=== PATIENT | female | born 1935 | race Caucasian/White ===

== ENCOUNTER 2017-08-22 12:21 | Emergency (ER) | payer MEDICARE, BC ==
[~2017-08-22] VITALS: Ht 152.4 cm; Wt 71.0 kg
[~2017-08-22 12:21] MED LIST: APIX5TAB3 PO; BIMA2.5D LEFTEYE; FLUO20CA39 PO; LOSA50TA37 PO; METF500T PO; NITR100C6 PO; THY15T PO
[2017-08-22 12:55] LABS: BASOPHILS % (AUTO) 0.2 % (0-1); EOSINOPHILS # (AUTO) 0.1 X10'3 (0-0.9); EOSINOPHILS % (AUTO) 1.7 % (0-6); HEMATOCRIT 42.2 % (35.0-45.0); HEMOGLOBIN 14.7 g/dl (12.0-16.0); LYMPHOCYTES # (AUTO) 1.7 X10'3 (1.1-4.8); LYMPHOCYTES % (AUTO) 24.8 % (21-51); MEAN CORPUSCULAR HEMOGLOBIN 30.9 PG (27.0-31.0); MEAN CORPUSCULAR HGB CONC 34.9 % (33.0-36.5); MEAN CORPUSCULAR VOLUME 88.8 FL (78-98); MEAN PLATELET VOLUME 9.1 FL (7.4-10.4); MONOCYTES # (AUTO) 0.5 X10'3 (0-0.9); MONOCYTES % (AUTO) 6.9 % (2-12); NEUTROPHILS # (AUTO) 4.4 X10'3 (1.8-7.7); NEUTROPHILS % (AUTO) 66.4 % (42-75); PLATELET COUNT 170 X10'3 (140-440); RED BLOOD COUNT 4.75 X10'6 (4.20-5.60); RED CELL DISTRIBUTION WIDTH 13.4 % (11.5-14.5); WHITE BLOOD COUNT 6.7 X10'3 (4.5-11.0)
[2017-08-22 13:02] LABS: PARTIAL THROMBOPLASTIN TIME 31 SECONDS (22-32); PROTHROMBIN TIME 10.6 SECONDS (9.0-12.0)
[2017-08-22 13:17] LABS: ALANINE AMINOTRANSFERASE 58 U/L (12-78); ALBUMIN 3.8 G/DL (3.4-5.0); ALBUMIN/GLOBULIN RATIO 0.9 (1.1-1.5); ALKALINE PHOSPHATASE 94 IU/L (46-116); ANION GAP 10 (8-16); ASPARTATE AMINO TRANSFERASE 36 U/L (10-37); BILIRUBIN,TOTAL 0.4 MG/DL (0.1-1.0); BLOOD UREA NITROGEN 14 MG/DL (7-18); CALCIUM 9.4 MG/DL (8.5-10.1); CHLORIDE 100 MMOL/L (99-107); GLUCOSE 241 MG/DL (70-104); POTASSIUM 3.6 MMOL/L (3.5-5.1); SODIUM 139 MMOL/L (135-145); TOTAL CARBON DIOXIDE 28.8 MMOL/L (24-32); TOTAL PROTEIN 7.9 G/DL (6.4-8.2); eGFR 53 ML/MIN
[2017-08-22 14:04] VITALS: BP 128/72
== END 2017-08-22 13:45 | disposition home or self-care (01) ==
LOC: ER 12:21
DX: K62.5 Hemorrhage of anus and rectum (principal); I10 Essential (primary) hypertension; I25.2 Old myocardial infarction; Z79.01 Long term (current) use of anticoagulants; Z95.0 Presence of cardiac pacemaker
CPT/HCPCS: 36415; 71045; 80053; 84484; 85025; 85610; 85730; 99285

== ENCOUNTER 2017-11-24 12:28 | Inpatient (IN) | payer MEDICARE, BC ==
[~2017-11-24] VITALS: Ht 539.5 cm; Wt 72.7 kg
[2017-11-24 13:03] LABS: BASOPHILS # (AUTO) 0.1 X10'3 (0-0.2); BASOPHILS % (AUTO) 0.6 % (0-1); EOSINOPHILS # (AUTO) 0.1 X10'3 (0-0.9); EOSINOPHILS % (AUTO) 0.9 % (0-6); HEMATOCRIT 40.3 % (35.0-45.0); HEMOGLOBIN 14.2 g/dl (12.0-16.0); LYMPHOCYTES # (AUTO) 1.9 X10'3 (1.1-4.8); LYMPHOCYTES % (AUTO) 22.2 % (21-51); MEAN CORPUSCULAR HEMOGLOBIN 31.8 PG (27.0-31.0); MEAN CORPUSCULAR HGB CONC 35.3 % (33.0-36.5); MEAN CORPUSCULAR VOLUME 90.1 FL (78-98); MEAN PLATELET VOLUME 9.1 FL (7.4-10.4); MONOCYTES # (AUTO) 0.5 X10'3 (0-0.9); MONOCYTES % (AUTO) 5.6 % (2-12); NEUTROPHILS % (AUTO) 70.7 % (42-75); PLATELET COUNT 158 X10'3 (140-440); RED BLOOD COUNT 4.48 X10'6 (4.20-5.60); RED CELL DISTRIBUTION WIDTH 13.9 % (11.5-14.5); WHITE BLOOD COUNT 8.4 X10'3 (4.5-11.0)
[2017-11-24 13:05] LABS: PARTIAL THROMBOPLASTIN TIME 57 SECONDS (22-32); PROTHROMBIN TIME 19.8 SECONDS (9.0-12.0)
[2017-11-24 13:06] LABS: ALANINE AMINOTRANSFERASE 58 U/L (12-78); ALBUMIN 3.9 G/DL (3.4-5.0); ALBUMIN/GLOBULIN RATIO 1.1 (1.1-1.5); ALKALINE PHOSPHATASE 84 IU/L (46-116); ANION GAP 10 (8-16); ASPARTATE AMINO TRANSFERASE 38 U/L (10-37); BILIRUBIN,TOTAL 0.4 MG/DL (0.1-1.0); BLOOD UREA NITROGEN 21 MG/DL (7-18); BUN/CREATININE RATIO 21.9 (6.6-38.0); CALCIUM 9.2 MG/DL (8.5-10.1); CHLORIDE 100 MMOL/L (99-107); CREATININE 0.96 MG/DL (0.40-0.90); GLUCOSE 197 MG/DL (70-104); POTASSIUM 4.3 MMOL/L (3.5-5.1); SODIUM 138 MMOL/L (135-145); TOTAL CARBON DIOXIDE 27.9 MMOL/L (24-32); TOTAL PROTEIN 7.6 G/DL (6.4-8.2); eGFR 56 ML/MIN
[2017-11-24 13:10] LABS: TROPONIN I < 0.04 NG/ML (0.0-0.05)
[2017-11-24] MEDS ORDERED: DABI75CA3 PO (13:30)
[2017-11-24] MEDS ORDERED: ATEN-169 PO (13:30)
[2017-11-24] MEDS ORDERED: FURO80TA87 PO (13:30)
[2017-11-24] MEDS ORDERED: GLIM1TAB46 PO (13:30)
[2017-11-24] MEDS ORDERED: magnesium Cl slow-release 64mg tablet PO PRN (14:20)
[2017-11-24] MEDS ORDERED: mag hydrox/Alum hydrox/simeth 30ml oral suspension PO PRN (14:20)
[2017-11-24] MEDS ORDERED: potassium Cl 40MEQ/NS 500ml 500 ML IV PRN ×2 (14:20)
[2017-11-24] MEDS ORDERED: magnesium 4gm in 100ml NS 100 ML IV PRN (14:20)
[2017-11-24] MEDS ORDERED: ondansetron/PF 4mg/2ml inj IV PRN (14:20)
[2017-11-24] MEDS ORDERED: acetaminophen 325mg tablet PO PRN (14:20)
[2017-11-24] MEDS ORDERED: magnesium hydroxide 30ml (MOM) UD suspension PO PRN (14:20)
[2017-11-24] MEDS ORDERED: potassium Cl 20 mEq SR tablet PO PRN ×2 (14:20)
[2017-11-24] MEDS ORDERED: magnesium 2GM in 50ml NS 50 ML IV PRN (14:20)
[2017-11-24] MEDS ORDERED: magnesium 1gm/100ml D5W IVPB 100 ML IV PRN (14:35)
[2017-11-24] MEDS ORDERED: glucagon, human recombinant 1mg kit SUBCUT PRN (15:10)
[2017-11-24] MEDS ORDERED: dextrose 50%-water 50ml dispensing syringe IV PRN ×2 (15:10)
[2017-11-24] MEDS ORDERED: dextrose ORAL solution 15 GM/59 ML bottle PO PRN ×2 (15:10)
[2017-11-24] MEDS ORDERED: MESSAGE TO PHARMACY PO ONE (15:10)
[2017-11-24 19:45] VITALS: BP 152/62
[2017-11-24] MEDS ORDERED: glimepiride 1 MG tablet PO SCH (20:00)
[2017-11-24] MEDS: metFORMIN 500mg tablet PO SCH (20:18)
[2017-11-24] MEDS: dabigatran 150mg capsule PO SCH (20:19)
[2017-11-24] MEDS: insulin Lispro (HumaLOG) vial - multi-dose SQ SCH (20:35)
[2017-11-24] MEDS ORDERED: insulin glargine (Lantus) pen - multi-dose SQ SCH (21:00)
[2017-11-24] MEDS ORDERED: latanoprost 0.005% 2.5ml ophthalmic drops LEFTEYE SCH (21:00)
[2017-11-24 23:00] VITALS: BP 159/69
[2017-11-25 03:00] VITALS: BP 153/70
[2017-11-25 05:00] VITALS: BP 153/68
[2017-11-25 06:02] LABS: BASOPHILS % (AUTO) 0.5 % (0-1); EOSINOPHILS # (AUTO) 0.1 X10'3 (0-0.9); EOSINOPHILS % (AUTO) 1.8 % (0-6); HEMOGLOBIN 13.1 g/dl (12.0-16.0); LYMPHOCYTES # (AUTO) 2.1 X10'3 (1.1-4.8); LYMPHOCYTES % (AUTO) 35.3 % (21-51); MEAN CORPUSCULAR HEMOGLOBIN 31.6 PG (27.0-31.0); MEAN CORPUSCULAR HGB CONC 35.6 % (33.0-36.5); MEAN PLATELET VOLUME 9.1 FL (7.4-10.4); MONOCYTES # (AUTO) 0.4 X10'3 (0-0.9); MONOCYTES % (AUTO) 7.4 % (2-12); NEUTROPHILS # (AUTO) 3.3 X10'3 (1.8-7.7); PLATELET COUNT 131 X10'3 (140-440); RED BLOOD COUNT 4.16 X10'6 (4.20-5.60); RED CELL DISTRIBUTION WIDTH 13.8 % (11.5-14.5)
[2017-11-25 06:24] LABS: ALANINE AMINOTRANSFERASE 48 U/L (12-78); ALBUMIN 3.2 G/DL (3.4-5.0); ALBUMIN/GLOBULIN RATIO 0.9 (1.1-1.5); ALKALINE PHOSPHATASE 63 IU/L (46-116); ANION GAP 12 (8-16); ASPARTATE AMINO TRANSFERASE 29 U/L (10-37); BILIRUBIN,TOTAL 0.4 MG/DL (0.1-1.0); BLOOD UREA NITROGEN 23 MG/DL (7-18); BUN/CREATININE RATIO 24.7 (6.6-38.0); CALCIUM 9.1 MG/DL (8.5-10.1); CHLORIDE 103 MMOL/L (99-107); CREATININE 0.93 MG/DL (0.40-0.90); GLUCOSE 167 MG/DL (70-104); LDL CHOLESTEROL 76 MG/DL (50-100); MAGNESIUM 1.9 MG/DL (1.5-2.4); PHOSPHORUS 4.1 MG/DL (2.3-4.5); POTASSIUM 3.7 MMOL/L (3.5-5.1); SODIUM 141 MMOL/L (135-145); TOTAL CARBON DIOXIDE 25.6 MMOL/L (24-32); TOTAL PROTEIN 6.6 G/DL (6.4-8.2); eGFR 58 ML/MIN
[2017-11-25] MEDS: dabigatran 150mg capsule PO SCH (07:22)
[2017-11-25] MEDS: metFORMIN 500mg tablet PO SCH (07:22)
[2017-11-25] MEDS ORDERED: K and/or MAG REPLACEMENT MC SCH (08:00)
[2017-11-25] MEDS ORDERED: furosemide 40mg tablet PO SCH (08:00)
[2017-11-25] MEDS: insulin Lispro (HumaLOG) vial - multi-dose SQ SCH (08:36)
[2017-11-25 09:59] VITALS: BP 164/66
[2017-11-25] MEDS ORDERED: iohexol 350MG/ML 100ml bottle IV ONE (11:51)
[2017-11-25 13:34] VITALS: BP 153/72
[2017-11-25] MEDS ORDERED: MESSAGE TO NURSING PO NR (15:00)
[2017-11-25] MEDS ORDERED: ATOR10TA PO (16:29)
== END 2017-11-25 17:31 | disposition home or self-care (01) | DRG 92 ==
LOC: ER 12:28 → ED HOLD 14:19 → ORTHO 4S 18:50
PROVIDERS: ADMIT Internal Medicine; ATTEND Internal Medicine
DX: R29.810 Facial weakness (principal); D68.69 Other thrombophilia; I48.0 Paroxysmal atrial fibrillation; E11.9 Type 2 diabetes mellitus without complications; E03.9 Hypothyroidism, unspecified; E78.5 Hyperlipidemia, unspecified; I10 Essential (primary) hypertension; I25.2 Old myocardial infarction; Z90.710 Acquired absence of both cervix and uterus; Z79.899 Other long term (current) drug therapy; Z79.84 Long term (current) use of oral hypoglycemic drugs; Z85.038 Personal history of other malignant neoplasm of large intestine; Z85.3 Personal history of malignant neoplasm of breast; Z87.891 Personal history of nicotine dependence; Z86.73 Personal history of transient ischemic attack (TIA), and cerebral infarction without residual deficits
CPT/HCPCS: 36415; 70450; 70496; 71045; 80053; 82948; 83036; 83721; 83735; 84100; 84484; 85025; 85610; 85730; 87070; 93005; 93306; 93880; 99285; J1815; J7030; Q9967

== ENCOUNTER 2019-04-30 12:36 | Emergency (ER) | payer MEDICARE, BC ==
[~2019-04-30] VITALS: Ht 152.4 cm; Wt 68.0 kg
[~2019-04-30 12:36] MED LIST changes: -APIX5TAB3 PO; +ATEN-169 PO; +ATOR10TA PO; +DABI75CA3 PO; -FLUO20CA39 PO; +FURO80TA87 PO; +GLIM1TAB3 PO; -LOSA50TA37 PO; -NITR100C6 PO
[2019-04-30 13:39] LABS: BASOPHILS % (AUTO) 0.6 % (0-1); EOSINOPHILS # (AUTO) 0.1 X10'3 (0-0.9); EOSINOPHILS % (AUTO) 1.2 % (0-6); HEMATOCRIT 38.2 % (35.0-45.0); HEMOGLOBIN 13.3 g/dl (12.0-16.0); LYMPHOCYTES # (AUTO) 1.7 X10'3 (1.1-4.8); LYMPHOCYTES % (AUTO) 32.4 % (21-51); MEAN CORPUSCULAR HEMOGLOBIN 32.3 PG (27.0-31.0); MEAN CORPUSCULAR HGB CONC 34.8 g/dL (33.0-36.5); MEAN CORPUSCULAR VOLUME 92.6 FL (78-98); MEAN PLATELET VOLUME 9.3 FL (7.4-10.4); MONOCYTES # (AUTO) 0.4 X10'3 (0-0.9); MONOCYTES % (AUTO) 8.3 % (2-12); NEUTROPHILS # (AUTO) 3.1 X10'3 (1.8-7.7); NEUTROPHILS % (AUTO) 57.5 % (42-75); PLATELET COUNT 139 X10'3 (140-440); RED BLOOD COUNT 4.12 X10'6 (4.20-5.60); RED CELL DISTRIBUTION WIDTH 13.3 % (11.5-14.5); WHITE BLOOD COUNT 5.3 X10'3 (4.5-11.0)
[2019-04-30 13:55] LABS: ALANINE AMINOTRANSFERASE 59 U/L (12-78); ALBUMIN 3.6 G/DL (3.4-5.0); ALBUMIN/GLOBULIN RATIO 0.9 (1.1-1.5); ALKALINE PHOSPHATASE 69 IU/L (46-116); ANION GAP 14 (8-16); ASPARTATE AMINO TRANSFERASE 29 U/L (10-37); BILIRUBIN,TOTAL 0.3 MG/DL (0.1-1.0); BLOOD UREA NITROGEN 23 MG/DL (7-18); BUN/CREATININE RATIO 25.6 (6.6-38.0); CALCIUM 8.9 MG/DL (8.5-10.1); CHLORIDE 102 MMOL/L (99-107); GLUCOSE 155 MG/DL (70-104); SODIUM 137 MMOL/L (135-145); TOTAL CARBON DIOXIDE 21.4 MMOL/L (24-32); TOTAL PROTEIN 7.4 G/DL (6.4-8.2); eGFR 60 ML/MIN
--- NOTE | 2019-04-30 14:21 | NUR ---
PT BACK FROM CT, UPDATED VS, AND PERFORMED STRAIGHT CATH URINE PT STATES SHE ONLY DRIBBLES AND DIFFICULTY PROVIDING CLEAN CATCH URINE, PT AGREEABLE TO STRAIGHT CATH AND TOLERATED PROCEDURE WELL.
[2019-04-30 14:30] LABS: CLARITY,URINE CLEAR (Clear); COLOR,URINE YELLOW (Yellow); GLUCOSE, URINE NEGATIVE (Neg); KETONES,URINE NEGATIVE (Neg); LEUKOCYTE ESTERASE ,URINE NEGATIVE (Neg); NITRITES, URINE NEGATIVE (Neg); OCCULT BLOOD,URINE NEGATIVE (Neg); PROTEIN,URINE NEGATIVE (Neg); UROBILINOGEN,URINE 0.2 E.U/dL (0.2-1.0)
[2019-04-30 14:31] LABS: UA COLLECTION TYPE STRAIGHT CATH
[2019-04-30 15:14] VITALS: BP 169/48
== END 2019-04-30 15:16 | disposition home or self-care (01) ==
LOC: ER 12:37
DX: K43.9 Ventral hernia without obstruction or gangrene (principal); K86.89 Other specified diseases of pancreas; I10 Essential (primary) hypertension; I25.2 Old myocardial infarction; E11.9 Type 2 diabetes mellitus without complications; Z85.038 Personal history of other malignant neoplasm of large intestine; Z85.3 Personal history of malignant neoplasm of breast; Z98.890 Other specified postprocedural states; Z90.710 Acquired absence of both cervix and uterus; Z95.0 Presence of cardiac pacemaker; Z79.899 Other long term (current) drug therapy
CPT/HCPCS: 36415; 74176; 80053; 81003; 85025; 99284; P9612

== ENCOUNTER 2020-11-23 06:40 | Emergency (ER) | payer MEDICARE, BC ==
[~2020-11-23] VITALS: Ht 172.7 cm; Wt 59.1 kg
[~2020-11-23 06:40] MED LIST changes: +AMA1T PO; -GLIM1TAB3 PO
[2020-11-23 08:01] LABS: BASOPHILS % (AUTO) 0.7 % (0-1); EOSINOPHILS # (AUTO) 0.1 X10'3 (0-0.9); EOSINOPHILS % (AUTO) 0.9 % (0-6); HEMATOCRIT 37.9 % (35.0-45.0); HEMOGLOBIN 12.8 g/dl (12.0-16.0); LYMPHOCYTES # (AUTO) 1.6 X10'3 (1.1-4.8); LYMPHOCYTES % (AUTO) 26.3 % (21-51); MEAN CORPUSCULAR HEMOGLOBIN 30.2 PG (27.0-31.0); MEAN CORPUSCULAR HGB CONC 33.8 g/dL (33.0-36.5); MEAN CORPUSCULAR VOLUME 89.2 FL (78-98); MEAN PLATELET VOLUME 8.9 FL (7.4-10.4); MONOCYTES # (AUTO) 0.5 X10'3 (0-0.9); MONOCYTES % (AUTO) 7.8 % (2-12); NEUTROPHILS # (AUTO) 3.9 X10'3 (1.8-7.7); NEUTROPHILS % (AUTO) 64.3 % (42-75); PLATELET COUNT 195 X10'3 (140-440); RED BLOOD COUNT 4.25 X10'6 (4.20-5.60); RED CELL DISTRIBUTION WIDTH 13.7 % (11.5-14.5); WHITE BLOOD COUNT 6.1 X10'3 (4.5-11.0)
[2020-11-23] MEDS ORDERED: ondansetron/PF 4mg/2ml inj IV ONE (08:10)
[2020-11-23] MEDS ORDERED: morphine 4 MG/ML inj SYRINge IV PRN (08:10)
[2020-11-23 08:17] LABS: ALBUMIN 3.4 G/DL (3.4-5.0); ALBUMIN/GLOBULIN RATIO 0.9 (1.1-1.5); ALKALINE PHOSPHATASE 100 IU/L (46-116); ANION GAP 10 (8-16); ASPARTATE AMINO TRANSFERASE 24 U/L (10-37); BILIRUBIN,TOTAL 0.5 MG/DL (0.1-1.0); BLOOD UREA NITROGEN 13 MG/DL (7-18); BUN/CREATININE RATIO 13.5 (6.6-38.0); CALCIUM 8.7 MG/DL (8.5-10.1); CHLORIDE 103 MMOL/L (99-107); CREATININE 0.96 MG/DL (0.40-0.90); GLUCOSE 247 MG/DL (70-104); LIPASE 472 U/L (73-393); POTASSIUM 4.3 MMOL/L (3.5-5.1); SODIUM 139 MMOL/L (135-145); TOTAL CARBON DIOXIDE 26.2 MMOL/L (24-32); eGFR 56 ML/MIN
--- NOTE | 2020-11-23 08:28 | NUR ---
Pt forgot she had an allergy to morphine. Morphine returned and new order obtained from Dr. Hunter for 50mcg of Fentanyl.
[2020-11-23] MEDS ORDERED: fentaNYL/PF 50MCG/1 ML 2ML syringe IV ONE (08:30)
[2020-11-23 08:47] LABS: ALANINE AMINOTRANSFERASE 24 U/L (12-78); TROPONIN I < 0.04 NG/ML (0.0-0.05)
[2020-11-23] MEDS ORDERED: HYDR-3964 PO (10:35)
[2020-11-23] MEDS ORDERED: ONDA4TAB6 PO (10:35)
[2020-11-23 10:54] VITALS: BP 134/71
[2020-11-24] MEDS ORDERED: HYDR-3964 PO (11:47)
[2020-11-24] MEDS ORDERED: ONDA4TAB6 PO (11:47)
== END 2020-11-23 10:58 | disposition home or self-care (01) ==
LOC: ER 06:41
DX: R10.11 Right upper quadrant pain (principal); R10.84 Generalized abdominal pain; I10 Essential (primary) hypertension; I25.2 Old myocardial infarction; E11.9 Type 2 diabetes mellitus without complications; Z87.19 Personal history of other diseases of the digestive system; Z95.5 Presence of coronary angioplasty implant and graft; Z85.3 Personal history of malignant neoplasm of breast; Z85.038 Personal history of other malignant neoplasm of large intestine; Z88.6 Allergy status to analgesic agent; Z79.899 Other long term (current) drug therapy; Z90.710 Acquired absence of both cervix and uterus
CPT/HCPCS: 36415; 74176; 80053; 83690; 84484; 85025; 93005; 96374; 96375; 99285; J2405; J3010